=== PATIENT | male | born 1955 | race Caucasian/White ===

== ENCOUNTER 2020-12-01 15:43 | Emergency (ER) | payer BC ==
[2020-12-01 15:55] VITALS: BP 150/93
--- NOTE | 2020-12-01 16:46 | ED Physician Documentation ---
PD HPI URI - Stated complaint Stated Complaint: INHALED MOLD - Chief complaint Chief Complaint: Resp - History obtained from History obtained from: Patient - History of Present Illness Timing - onset: Today Timing duration: Hours Timing details: Gradual onset (power washing house siding today that had dirt/mold on it, and he was feeling short of breath after inhaling it awhile today. Concerned about inhaling mold.), Now resolved (he is feeling better after coughing some phlegm once away from the power washing mist.) Associated symptoms: Dry cough, Dyspnea. No: Fever, Chills, NVD Contributing factors: Unimmunized. No: Sick contact, Travel Similar symptoms before: Has not had sx before Review of Systems Constitutional: denies: Fever, Chills Nose: denies: Rhinorrhea / runny nose, Congestion Throat: denies: Sore throat Respiratory: reports: Dyspnea, Cough (just after power washing awhile.) GI: denies: Nausea, Vomiting Immunocompromised: denies: Immunocompromised PD PAST MEDICAL HISTORY - Past Medical History Cardiovascular: None Respiratory: None Neuro: None Endocrine/Autoimmune: None - Present Medications Home Medications: Ambulatory Orders Medication Instructions Recorded Confirmed Albuterol Sulf [Ventolin Hfa 3 - 4 puffs INH Q4HR PRN #1 inhaler 12/01/20 Inhaler] Cyclosporine [Restasis Multidose] 0 mg DAILY 12/01/20 12/01/20 - Allergies Allergies/Adverse Reactions: Allergies Allergy/AdvReac Type Severity Reaction Status Date / Time No Known Drug Allergies Allergy Verified 12/01/20 15:55 PD ED PE NORMAL - Vitals Vital signs reviewed: Yes - General General: Alert and oriented X 3, No acute distress, Well developed/nourished - HEENT HEENT: Pharynx benign - Neck Neck: Supple, no meningeal sign, No adenopathy - Cardiac Cardiac: RRR, No murmur - Respiratory Respiratory: Clear bilaterally - Abdomen Abdomen: Soft, Non tender - Derm Derm: Normal color, Warm and dry, No rash Results - Vitals Vitals: Vital Signs - 24 hr 12/01/20 15:48 Temperature 36.2 C L Heart Rate 76 Respiratory 16 Rate Blood Pressure 150/93 H O2 Saturation 97 Oxygen O2 Source Room air PD MEDICAL DECISION MAKING - ED course Complexity details: considered differential (power washing house siding today that had dirt/mold on it, and he was feeling short of breath after inhaling it awhile today. Concerned about inhaling mold. Seems likely just bronchial irritation and can use MDI for few days to improve bronchial clearing of material. ), d/w patient Departure - Departure Disposition: 01 Home, Self Care Clinical Impression: Contact with or exposure to mold, Bronchial irritation Condition: Stable Record reviewed to determine appropriate education?: Yes Prescriptions: Albuterol Sulf [Ventolin Hfa Inhaler] 3 - 4 puffs INH Q4HR PRN #1 inhaler PRN Reason: Shortness Of Air/Wheezing Comments: You can use the albuterol inhaler 3 to 4 puffs several times a day for the next several days to reduce the amount of coughing and spasming/wheezing from the bronchial irritation. It would be unlikely to develop an infection from this exposure. That said if you develop purulent cough, trouble breathing, fevers or such (I would expect that more like a week or so after the exposure) then follow-up with your primary care or back in the ER. For the next few days it may be some coughing and wheezing related just to the irritation from the inhaled particles. I transmitted the prescription to [facility] in [place]. Discharge Date/Time: 12/01/20 17:28
== END 2020-12-01 17:28 | disposition home or self-care (01) ==
LOC: ED 15:43
DX: J40 Bronchitis, not specified as acute or chronic (principal); Z77.120 Contact with and (suspected) exposure to mold (toxic)
CPT/HCPCS: 99282; 99283

== ENCOUNTER 2021-03-15 10:20 | Outpatient (CLI) | payer BC ==
--- NOTE | 2021-03-15 12:54 | XRAY Report ---
PROCEDURE: Knee 2 View BILAT INDICATIONS: CHRONIC BILATERAL KNEE PAIN TECHNIQUE: 4 views of the bilateral knee(s) were acquired. COMPARISON: None. FINDINGS: Bones: No fractures or dislocations. Symmetric appearing mild to moderate bilateral tricompartmenta l osteoarthritis is seen more prominent in medial femoral tibial compartments. No suspicious bony les ions. Soft tissues: Small bilateral suprapatellar joint effusion is seen. No suspicious soft tissue calcif ications. IMPRESSION: Symmetric appearing bilateral mild to moderate tricompartmental osteoarthritis more prom inent in medial femoral tibial compartment. Small bilateral suprapatellar joint effusion. No fracture or dislocation. Reviewed by: Royce Walker MD on 03/15/2021 12:52 PM PST Approved by: Royce Walker MD on 03/15/2021 12:52 PM PST Station ID: [id number]
== END 2021-03-15 23:59 | disposition home or self-care (01) ==
LOC: DI.N 10:20
PROVIDERS: ATTEND Physician Assistant Medical
DX: M17.0 Bilateral primary osteoarthritis of knee (principal)

== ENCOUNTER 2021-08-29 08:00 | Outpatient (CLI) | payer BC ==
--- NOTE | 2021-08-29 13:39 | XRAY Report ---
PROCEDURE: Knee 3 View RT INDICATIONS: R KNEE PX TECHNIQUE: 3 views of the right knee(s) were acquired. COMPARISON: None. FINDINGS: Bones: No fractures or dislocations. No suspicious bony lesions. Mild osteophytosis. Soft tissues: Trace joint effusion. No suspicious soft tissue calcifications. IMPRESSION: Mild degenerative arthritis of the right knee. Reviewed by: Yared Fragoso MD on 08/29/2021 1:38 PM PDT Approved by: Yared Fragoso MD on 08/29/2021 1:38 PM PDT Station ID: [id number]
== END 2021-08-29 23:59 | disposition home or self-care (01) ==
LOC: DI.N 08:00
PROVIDERS: ATTEND Physician Assistant
DX: M17.11 Unilateral primary osteoarthritis, right knee (principal)

== ENCOUNTER 2022-03-01 08:09 | Outpatient (CLI) | payer BC ==
[2022-03-01 08:41] LABS: BUN - BLOOD UREA NITROGEN 25 mg/dL (6-20); CALCIUM 9.6 mg/dL (8.5-10.3); CARBON DIOXIDE - CO2 30 mmol/L (21-32); CHLORIDE 100 mmol/L (101-111); CREATININE 1.1 mg/dL (0.6-1.2); GFR - MDRD 66 (>89); GLUCOSE 115 mg/dL (70-100); POTASSIUM 4.5 mmol/L (3.5-5.0); SODIUM 138 mmol/L (135-145)
[2022-03-01 09:17] LABS: CRP - C-REACTIVE PROTEIN < 1.0 mg/dL (0-1.0)
--- NOTE | 2022-03-01 13:05 | XRAY Report ---
PROCEDURE: Wrist 2 View BILAT INDICATIONS: WRIST PAIN TECHNIQUE: 2 views of the bilateral wrists were acquired. COMPARISON: None FINDINGS: Bones: No fractures or dislocations. No suspicious bony lesions. No erosions or proliferative weinstein ges. Soft tissues: No suspicious soft tissue calcifications. IMPRESSION: Normal bilateral wrists. No radiographic evidence of inflammatory arthropathy. Reviewed by: Sj Carey on 03/01/2022 1:03 PM [facility] Approved by: Sj Carey on 03/01/2022 1:03 PM [facility] Station ID: [id number]
[2022-03-03 11:08] LABS: ANTI-DNA (DS) AB QN 4 IU/mL (0-9); CENTROMERE B ANTIBODIES <0.2 AI (0.0-0.9); CHROMATIN ANTIBODIES <0.2 AI (0.0-0.9); JO-1 AB <0.2 AI (0.0-0.9); RIBOSOMAL P ANTIBODIES <0.2 AI (0.0-0.9); RNP ANTIBODIES <0.2 AI (0.0-0.9); SCLERODERMA-70 ANTIBODIES <0.2 AI (0.0-0.9); SJOGREN'S ANTI-SS-A <0.2 AI (0.0-0.9); SJOGREN'S ANTI-SS-B <0.2 AI (0.0-0.9); SMITH ANTIBODIES <0.2 AI (0.0-0.9); SMITH/RNP ANTIBODIES <0.2 AI (0.0-0.9)
== END 2022-03-01 08:10 | disposition home or self-care (01) ==
LOC: DI 08:09
PROVIDERS: ATTEND Physician Assistant
DX: M25.531 Pain in right wrist (principal); M25.532 Pain in left wrist; M79.10 Myalgia, unspecified site; R97.20 Elevated prostate specific antigen [PSA]
CPT/HCPCS: 36415; 80048; 83516; 84153; 85651; 86140; 86225; 86235

== ENCOUNTER 2023-05-01 10:46 | Outpatient (CLI) | payer MEDICARE ==
--- NOTE | 2023-05-01 10:53 | CARDIAC PROCEDURE NOTE ---
Stress Test Report Service Date: 05/01/23 Service Time: 11:00 Ordering Provider: Allie Kelly PA Indication for Test: Risk stratification in patient with some cardiac risk factors and symptomatic palpitations. Significant Medical History: Garry reports a history of palpitations dating back at least 20 years, waxing and waning over that time, but more prevalent again recently. Years ago he had a Holter monitor and stress test that were negative per his recollection, though records are not available. He was seen several weeks ago with concern for palpitations increasing again, which he describes as a feeling like "flipping and flopping" of his heart. 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 He has been renovating his home, continues doing bicycling and skiing, and he just returned from 2 days skiing at [employer]. He has not experienced any discomfort per se with the palpitations, nor increased exertional dyspnea, lightheadedness or reduction in stamina. When seen in clinic prior to this study his exam was notable for a systolic murmur, loudest at the left upper sternal border, that was noted as new. In early April he underwent a 14-day "CAM patch" ambulatory rhythm monitor study, showing normal sinus rhythm with rare non-sustained and asymptomatic atrial tachycardia runs as well as a single symptomatic 9 beat non- sustained VT run. During this monitoring interval he activated the device for symptoms on 17 occasions, 12 of these associated with sinus rhythm, 3 with sinus tachycardia (sometimes associated with "dizziness/lightheadedness"), once for PVC and once for the noted VT run. Cardiac Risk Factors: Positive for untreated hyperlipemia (TC 239, LDLc 164, HDLc 64, TG 57) and family history of CAD in paternal grandparents; no history of hypertension, diabetes or prior tobacco smoking history. Type of Stress Test: ETT with Echocardiography Procedure: -Exercise Treadmill Test- After signing informed consent, the patient performed treadmill exercise using a Raciel protocol. The patient exercised for 9 minutes 14 seconds and achieved a peak heart rate of 141 (93 percent predicted maximum heart rate for age), and an estimated workload of 10.6 METS. The test was terminated due to fatigue/shortness of breath. Resting heart rate: 73 Peak heart rate: 141 Normal response to exercise. Resting BP: 147/82 Peak BP: 251/69 Elevated resting systolic BP with normal diastolic and hypertensive systolic BP responses to exercise. Normal room air oxygen saturation throughout. Rhythm during exercise: Sinus rhythm throughout, with no ectopy noted. Symptoms: No concern for palpitations or any chest pressure/discomfort/pain. EKG at rest showed normal sinus rhythm, isolated mild left axis deviation and probable left atrial abnormality; QRS pattern also notable for small, non- significant and likely septal q waves in leads I and aVL; normal ST/T pattern throughout. . EKG at peak stress showed no ischemia by EKG criteria. In Recovery HR rapidly/normally decreased to baseline level with slower decrease in BP (158/76 at 7:00). Echo imaging, performed at rest and with stress, will be reported separately. IYfn MD, was present throughout this treadmill stress study and supervised it in its entirety. Summary: 1) Exercise tolerance well above average for age and sex as evidenced by TONYA of -30%. 2) Borderline resting EKG, with interpretable repolarization pattern. 3) Adequate level of exercise was achieved on this treadmill stress test. 4) Abnormal hypertensive systolic BP response to exercise. 5) No ischemic changes by EKG criteria were seen at peak stress. 6) Echo image interpretation reveals normal left ventricular size, wall thickness and systolic function, with appropriate hyperdynamic augmentation of all segments with exercise, indicating no evidence of prior infarct or inducible ischemia. On screening there was no significant structural valvular abnormality seen nor elevation of estimated pulmonary artery systolic pressure. See separate report for more details. Conclusions and Recommendations: 1) Overall this is a very reassuring treadmill stress echocardiogram study, showing no symptom, EKG or echocardiographic evidence of inducible ischemia, nor exertionally-associated dysrhythmia. 2) We did not discuss his hypertensive BP response, but periodic self-monitoring of BP may be advisable in the future.
== END 2023-05-01 10:47 | disposition home or self-care (01) ==
LOC: DI 10:46
PROVIDERS: ATTEND Physician Assistant
DX: R00.2 Palpitations (principal); I10 Essential (primary) hypertension; R00.0 Tachycardia, unspecified; E78.5 Hyperlipidemia, unspecified; Z82.49 Family history of ischemic heart disease and other diseases of the circulatory system
CPT/HCPCS: 93350

== ENCOUNTER 2023-05-02 08:11 | Outpatient (CLI) | payer MEDICARE ==
[2023-05-02 08:36] LABS: BASOPHILS % (AUTO) 0.7 %; EOSINOPHILS # (AUTO) 0.4 10^3/uL (0.0-0.7); EOSINOPHILS % (AUTO) 8.1 %; HCT - HEMATOCRIT 42.7 % (42.0-52.0); HGB - HEMOGLOBIN 14.2 g/dL (14.0-18.0); LYMPHOCYTES # (AUTO) 1.2 10^3/uL (1.5-3.5); LYMPHOCYTES % (AUTO) 26.8 %; MEAN CORPUSCULAR HEMOGLOBIN 33.2 pg (27.0-31.0); MEAN CORPUSCULAR HGB CONC 33.3 g/dL (32.0-36.0); MEAN CORPUSCULAR VOLUME 99.8 fL (80.0-94.0); MEAN PLATELET VOLUME 9.1 fL (7.4-11.4); MONOCYTES # (AUTO) 0.4 10^3/uL (0.0-1.0); MONOCYTES % (AUTO) 8.1 %; NEUTROPHILS # (AUTO) 2.6 10^3/uL (1.5-6.6); NEUTROPHILS % (AUTO) 56.1 %; PLT - PLATELET COUNT 246 10^3/uL (130-450); RED BLOOD COUNT 4.28 10^6/uL (4.70-6.10); RED CELL DISTRIBUTION WIDTH 12.9 % (12.0-15.0); WHITE BLOOD COUNT 4.6 x10^3/uL (4.8-10.8)
[2023-05-02 08:53] LABS: ALBUMIN 4.4 g/dL (3.2-5.5); ALBUMIN/GLOBULIN RATIO 1.8 (1.0-2.2); ALKALINE PHOSPHATASE 40 IU/L (42-121); ALT ALANINE AMINOTRANSFERASE 29 IU/L (10-60); AST ASPARTATE AMINOTRANSFERASE 22 IU/L (10-42); BILIRUBIN,TOTAL 0.5 mg/dL (0.2-1.0); BUN - BLOOD UREA NITROGEN 28 mg/dL (6-20); CALCIUM 9.6 mg/dL (8.5-10.3); CARBON DIOXIDE - CO2 30 mmol/L (21-32); CHLORIDE 104 mmol/L (101-111); CHOL/HDL RATIO 3.7 (<5.0); CHOLESTEROL 249 mg/dL; CREATININE 1.2 mg/dL (0.6-1.3); GFR - MDRD 60 (>89); GLUCOSE 106 mg/dL (74-104); HDL CHOLESTEROL 68 mg/dL; LDL CHOLESTEROL,CALCULATED 168 mg/dL; LDL/HDL RATIO 2.5 (<3.6); POTASSIUM 4.6 mmol/L (3.5-4.5); SODIUM 138 mmol/L (135-145); TOTAL PROTEIN 6.8 g/dL (6.4-8.9); TRIGLYCERIDES 67 mg/dL (48-352); VLDL CHOLESTEROL 13 mg/dL
[2023-05-02 09:00] LABS: BILIRUBIN,URINE NEGATIVE (NEGATIVE); GLUCOSE, URINE (UA) NEGATIVE (NEGATIVE); KETONES,URINE (UA) NEGATIVE (NEGATIVE); LEUKOCYTE ESTERASE, URINE NEGATIVE (NEGATIVE); NITRITE,URINE NEGATIVE (NEGATIVE); OCCULT BLOOD,URINE NEGATIVE (NEGATIVE); PROTEIN,URINE NEGATIVE (NEGATIVE); UROBILINOGEN,URINE 0.2 (NORMAL) E.U./dL (NORMAL)
[2023-05-02 09:08] LABS: THYROID STIMULATING HORMONE 2.19 uIU/mL (0.34-5.60)
[2023-05-02 09:11] LABS: CLARITY,URINE CLEAR (CLEAR)
[2023-05-02 09:24] LABS: RBC,URINE 0-5 /HPF (0-5); SQUAMOUS EPITHELIAL CELL,UR NONE SEEN (<= Few); WBC,URINE 0-3 /HPF (0-3)
[2023-05-02 09:25] LABS: BACTERIA,URINE Rare /HPF (None Seen)
[2023-05-02 10:17] LABS: ESTIMATED AVERAGE GLUCOSE 108 mg/dL (70-100); HEMOGLOBIN A1c% 5.4 % (4.27-6.07)
== END 2023-05-02 08:12 | disposition home or self-care (01) ==
LOC: LAB 08:11
PROVIDERS: ATTEND Physician Assistant
DX: E78.5 Hyperlipidemia, unspecified (principal); R00.2 Palpitations; R73.01 Impaired fasting glucose; Z12.5 Encounter for screening for malignant neoplasm of prostate
CPT/HCPCS: 36415; 80053; 80061; 81001; 83036; 84443; 85025; G0103; 83721; 84153; 87086